=== PATIENT | male | born 1945 | race Caucasian/White ===

== ENCOUNTER 2021-10-08 07:26 | Emergency (ER) | payer MEDICARE ==
[~2021-10-08 07:26] MED LIST: NORVASC5 MG PO
[2021-10-08 08:31] LABS: BASOPHIL 0.8 % (0-2); EOSINOPHIL 1.3 % (0-7); HCT 46.4 % (42.0-52.0); HGB 15.8 g/dl (13.2-18.0); LYMPHOCYTE 5.3 % (15-48); MCH 29.8 pg (25.0-31.0); MCHC 34.1 g/dL (32.0-36.0); MCV 87.5 fL (78.0-100.0); MONOCYTE 17.2 % (0-12); MPV 9.4 fL (6.0-9.5); NEUTROPHIL 75.1 % (41-80); NRBC 0; PLT 223 K/uL (150-400); RDW 13.9 % (11.5-14.0)
[2021-10-08 08:47] LABS: BUN/CREAT RATIO (CALC) 12.3 RATIO; CREATININE 1.14 mg/dL (0.67-1.17)
[2021-10-08 08:52] LABS: BILIRUBIN NEGATIVE (NEGATIVE); BLOOD NEGATIVE Ery/uL (NEGATIVE); CLARITY CLEAR (CLEAR); COLOR YELLOW (YELLOW); GLUCOSE (U) NORMAL (NORMAL); LEUKOCYTES NEGATIVE Leu/uL (NEGATIVE); NITRITE NEGATIVE (NEGATIVE); PROTEIN NEGATIVE (NEGATIVE); UROBILINOGEN 0.2 mg/dL (0.2-1.0)
[2021-10-08] MEDS ORDERED: CYCLOBENZAPRINE10 MG PO (09:36)
[2021-10-08] MEDS ORDERED: NAPROXEN500 MG PO (09:36)
== END 2021-10-08 10:03 | disposition home or self-care (01) ==
LOC: FER 07:26
PROVIDERS: Emergency Medicine
DX: M54.50 Low back pain, unspecified (principal); I10 Essential (primary) hypertension; Z28.310 Unvaccinated for COVID-19
CPT/HCPCS: 36415; 80048; 81003; 85025; J1885